=== PATIENT | female | born 1970 | race African-American/Black ===

== ENCOUNTER 2017-05-17 14:31 | Emergency (ER) | payer OTHER ==
[~2017-05-17] VITALS: Ht 162.6 cm; Wt 79.4 kg
[~2017-05-17 14:31] MED LIST: AUGMENTIN TAB875 MG PO; CARDIZEM CD120 MG ORAL; CIPROFLOXACIN500 M2 ORAL; DILTIAZEM HCL120 MG PO; HYDROCHLOROTHIA25 MG ORAL; HYDROCODON-ACE1 EA15 ORAL; IBUPROFEN600 MG ORAL; KEFLEX500 MG ORAL; METOPROLOL TART25 MG PO; NKM; PHENAZOPYRIDIN100 MG ORAL; TYLENOL EXTRA500 MG ORAL; ZOFRAN4 MG ORAL
[2017-05-17 14:51] VITALS: BP 176/108
--- NOTE | 2017-05-17 14:52 | Emergency Room Report ---
History of Present Illness General Chief Complaint: Neck Pain Source: Patient Present Illness HPI Patient is a 46-year-old female who presented after having increased right- sided neck pain. The patient reported having sharp pain which did not radiate. Pain was noticed after she woke up possibly 2 weeks ago. Patient stated that she had been having some episodic numbness to her extremities. The patient stated that she had no recent trauma or chiropractic use. She denies recent fever headache. She had not been vomiting. She denied recent sore throat Allergies: Coded Allergies: No Known Allergies (Unverified , 03/07/14) Patient History Past Medical History: see triage record Last Menstrual Period: 05/09/17 Now: No : 4 Para: 0 Reviewed Nursing Documentation: PMH: Agreed, PSxH: Agreed Nursing Documentation-PMH Past Medical History: No History, Except For Hx Hypertension: Yes Hx Pacemaker: No - Fibroid surgery via laser 2017 Review of Systems All Other Systems: negative except mentioned in HPI Physical Exam Vital Signs Date Time Temp Pulse Resp B/P (MAP) Pulse Ox O2 Delivery O2 Flow Rate FiO2 05/17/17 14:34 97.9 88 20 186/106 99 Room Air Sp02 EP Interpretation: reviewed, normal General Appearance: normal inspection, well appearing, no apparent distress, alert, GCS 15, non-toxic Head: atraumatic ENT: normal ENT inspection, hearing grossly normal, normal voice Neck: supple, no bony tend, limited range of motion, tender lateral, other - muscle spasm Respiratory: normal inspection, lungs clear, normal breath sounds, no respiratory distress, no retraction, no wheezing Cardiovascular #1: regular rate, rhythm, no edema Gastrointestinal: normal inspection, normal bowel sounds, non tender, soft, no guarding, no hernia Genitourinary: no CVA tenderness Musculoskeletal: normal inspection, back normal Neurologic: normal inspection, alert, oriented x3, responsive, costume designer III-XII nml as tested, speech normal Psychiatric: normal inspection, judgement/insight normal, mood/affect normal Skin: normal inspection, normal color, no rash Medical Decision Making Diagnostic Impression: Primary Impression: Acute torticollis ER Course Patient presented for neck pain. Differential diagnosis included vertebral artery dissection, myocardial infarction, cervical fracture arthritis, spondylolithises. Because of complexity of patient's case laboratory testing and imaging studies were ordered.X-ray imaging of the neck 4 views nterpreted by me showed normal bony alignment without evident soft tissue swelling or fracture.patient was given IV magnesium.Laboratory studies were unremarkable., The patient is advised to follow up with primary care doctor in 1-2 days. Patient is advised to return if any worsening condition or if any changes in status that are concerning. Labs Test 05/17/17 16:50 White Blood Count 5.3 K/UL (4.8-10.8) Red Blood Count 4.03 M/UL (4.20-5.40) Hemoglobin 13.1 G/DL (12.0-16.0) Hematocrit 38.9 % (37.0-47.0) Mean Corpuscular Volume 97 FL (80-99) Mean Corpuscular Hemoglobin 32.5 PG (27.0-31.0) Mean Corpuscular Hemoglobin Concent 33.6 G/DL (32.0-36.0) Red Cell Distribution Width 13.2 % (11.6-14.8) Platelet Count 243 K/UL (150-450) Mean Platelet Volume 7.2 FL (6.5-10.1) Neutrophils (%) (Auto) 48.8 % (45.0-75.0) Lymphocytes (%) (Auto) 42.5 % (20.0-45.0) Monocytes (%) (Auto) 5.9 % (1.0-10.0) Eosinophils (%) (Auto) 1.0 % (0.0-3.0) Basophils (%) (Auto) 1.8 % (0.0-2.0) Sodium Level 140 mEQ/L (135-145) Potassium Level 4.4 mEQ/L (3.4-4.9) Chloride Level 98 mEQ/L (98-107) Carbon Dioxide Level 27 mEQ/L (20-30) Anion Gap 15 (5-15) Blood Urea Nitrogen 10 mg/dL (7-23) Creatinine 0.9 mg/dL (0.5-0.9) Estimat Glomerular Filtration Rate > 60 mL/min (>60) Glucose Level 83 mg/dL (74-106) Calcium Level 9.0 mg/dL (8.6-10.2) Total Bilirubin 0.3 mg/dL (0.0-1.2) Aspartate Amino Transf (AST/SGOT) 23 U/L (5-40) Alanine Aminotransferase (ALT/SGPT) 12 U/L (3-33) Alkaline Phosphatase 77 U/L (35-104) Total Protein 7.4 g/dL (6.6-8.7) Albumin 4.3 g/dL (3.5-5.2) Globulin 3.1 g/dL Albumin/Globulin Ratio 1.3 (1.0-2.7) Other X-Ray Diagnostic Results Other X-Ray Diagnostic Results : # of Views/Limited Vs Complete: 4 View Indication: Pain EP Interpretation: Yes Interpretation: no dislocation, no soft tissue swelling, no fractures Impression: No acute disease Electronically Signed by: Electronically signed by Dr. Oscar Menjivar M.D. Last Vital Signs Date Time Temp Pulse Resp B/P (MAP) Pulse Ox O2 Delivery O2 Flow Rate FiO2 05/17/17 14:34 97.9 88 20 186/106 99 Room Air Status: improved Disposition: HOME, SELF-CARE Condition: Stable Scripts Diazepam* (VALIUM*) 5 Mg Tablet 5 MG ORAL TID Y for muscle spasm, #30 TAB 0 Refills Prov: Oscar Menjivar 05/17/17 Oscar Menjivar May 17, 2017 14:52
--- NOTE | 2017-05-17 16:02 | Diagnostic Imaging Report ---
Indication: PAIN Technique: 3 views of the lumbar spine Comparison: None Findings:There is straightening of the normal cervical lordosis. Otherwise normal bony alignment. No prevertebral soft tissue swelling There is degenerative disc narrowing at C5-6 and C6-7. No acute fractures. No dislocations. Impression:No acute process
[2017-05-17 16:26] VITALS: BP 164/96
[2017-05-17 17:01] LABS: BASOPHILS % (AUTO) 1.8 % (0.0-2.0); LYMPHOCYTES % (AUTO) 42.5 % (20.0-45.0); MEAN CORPUSCULAR HEMOGLOBIN 32.5 PG (27.0-31.0); MEAN CORPUSCULAR HGB CONC 33.6 G/DL (32.0-36.0); MEAN CORPUSCULAR VOLUME 97 FL (80-99); MEAN PLATELET VOLUME 7.2 FL (6.5-10.1); MONOCYTES % (AUTO) 5.9 % (1.0-10.0); NEUTROPHILS % (AUTO) 48.8 % (45.0-75.0); PLATELET COUNT 243 K/UL (150-450); RED BLOOD COUNT 4.03 M/UL (4.20-5.40); RED CELL DISTRIBUTION WIDTH 13.2 % (11.6-14.8); WHITE BLOOD COUNT 5.3 K/UL (4.8-10.8)
[2017-05-17 17:25] LABS: ALANINE AMINOTRANSFERASE 12 U/L (3-33); ALBUMIN/GLOBULIN RATIO 1.3 (1.0-2.7); ANION GAP 15 (5-15); ASPARTATE AMINO TRANSFERASE 23 U/L (5-40); CARBON DIOXIDE 27 mEQ/L (20-30); CHLORIDE 98 mEQ/L (98-107); CREATININE 0.9 mg/dL (0.5-0.9); GLOMERULAR FILTRATION RATE > 60 mL/min (>60); HEMOLYSIS 43; POTASSIUM 4.4 mEQ/L (3.4-4.9); SODIUM 140 mEQ/L (135-145); TOTAL PROTEIN 7.4 g/dL (6.6-8.7)
[2017-05-17] MEDS ORDERED: VALIUM5 MG ORAL (17:37)
[2017-05-17 17:45] VITALS: BP 164/96
[2017-05-17 19:16] VITALS: BP 148/103
== END 2017-05-17 19:16 | disposition home or self-care (01) ==
LOC: EMR 14:50
DX: M43.6 Torticollis (principal); M54.2 Cervicalgia; I10 Essential (primary) hypertension
CPT/HCPCS: 36415; 72040; 80053; 85025; 96361; 96365; 99284

== ENCOUNTER 2017-11-04 17:15 | Emergency (ER) | payer OTHER ==
[~2017-11-04] VITALS: Ht 162.6 cm; Wt 72.6 kg
[~2017-11-04 17:15] MED LIST changes: +VALIUM5 MG ORAL
[2017-11-04 17:54] VITALS: BP 162/109
--- NOTE | 2017-11-04 17:58 | Emergency Room Report ---
History of Present Illness General Chief Complaint: Earache Source: Patient Present Illness HPI 47 YO Female presents to the ED c/o decreased hearing in the left ear progressive x 10 days. recent URI. Denies fevers, chills, or ear pain. pt. reports hx of impacted cerumen. Pt. reports having some hearing in the left ear however describes muffled. Denies CP, Palpitations, LOC, AMS, dizziness, Changes in Vision, Sensation, paresthesias, or a sudden severe headache. Allergies: Coded Allergies: No Known Allergies (Unverified , 03/07/14) Patient History Past Medical History: see triage record Past Surgical History: none Pertinent Family History: none Last Menstrual Period: 4 weeks ago Now: No Reviewed Nursing Documentation: PMH: Agreed, PSxH: Agreed Nursing Documentation-PMH Past Medical History: No History, Except For Hx Hypertension: Yes Hx Pacemaker: No - Fibroid surgery via laser 2017 Review of Systems All Other Systems: negative except mentioned in HPI Physical Exam Vital Signs Date Time Temp Pulse Resp B/P (MAP) Pulse Ox O2 Delivery O2 Flow Rate FiO2 11/04/17 17:23 98.8 97 16 162/113 99 Room Air 98.8 Sp02 EP Interpretation: reviewed, normal General Appearance: no apparent distress, alert, GCS 15, non-toxic Head: normocephalic, atraumatic Eyes: bilateral eye normal inspection, bilateral eye PERRL ENT: hearing grossly normal, normal voice, uvula midline, moist mucus membranes , nasal congestion, other - Impacted Cerumen of the left ear canal Neck: full range of motion Respiratory: lungs clear, normal breath sounds, speaking full sentences Cardiovascular #1: regular rate, rhythm Musculoskeletal: gait/station normal, normal range of motion Neurologic: alert, oriented x3, responsive, motor strength/tone normal, sensory intact, normal gait, speech normal, grossly normal Psychiatric: judgement/insight normal Skin: normal color, no rash, warm/dry, well hydrated Lymphatic: no adenopathy Medical Decision Making PA Attestation Dr. sanchez is my supervising Physician whom patient management has been discussed with. Diagnostic Impression: Primary Impression: Impacted cerumen of left ear ER Course 47 YO Female presents to the ED c/o decreased hearing in the left ear progressive x 10 days. recent URI. Denies fevers, chills, or ear pain. pt. reports hx of impacted cerumen. Pt. reports having some hearing in the left ear however describes muffled. Denies CP, Palpitations, LOC, AMS, dizziness, Changes in Vision, Sensation, paresthesias, or a sudden severe headache. Ddx considered but are not limited to OM, OE, mastoiditis, TM perforation, FB Vital signs: are WNL, pt. is afebrile H&PE are most consistent with impacted cerumen of the left ear canal. ORDERS: none required at this time, the diagnosis is clinical -OSOTCOPY: Impacted cerumen in the left ear canal. ED INTERVENTIONS: -Ear Irrigation by gameroom technician. Upon reevaluation the canal is clear of infection and no evidence of infection. She tolerated the procedure well. She reports significant improvement in her ability to hear out of the left ear. DISCHARGE: At this time pt. is stable for d/c to home. With rx for Docusate. Will provide printed patient care instructions, and any necessary prescriptions. Care plan and follow up instructions have been discussed with the patient prior to discharge. Last Vital Signs Date Time Temp Pulse Resp B/P (MAP) Pulse Ox O2 Delivery O2 Flow Rate FiO2 11/04/17 17:23 98.8 97 16 162/113 99 Room Air 98.8 Disposition: HOME, SELF-CARE Condition: Stable Scripts Carbamide Peroxide (DEBROX) 15 Ml Drops 5 DROP LEFT EAR TWICE A DAY for 4 Days, #15 ML 0 Refills Prov: Corazon Laughlin 11/04/17 Patient Instructions: Cerumen Impaction Additional Instructions: Take medications as directed. Follow up with a Primary Care Provider in 3-5 days, for ENT/audiology Referral if Symptoms persist. --Please review list of primary care clinics, if you do not already have a primary care provider Return sooner to ED if new symptoms occur, or current symptoms become worse. - Please note that this Emergency Department Report was dictated using [employer] director technology software, occasionally this can lead to erroneous entry secondary to interpretation by the dictation equipment. Corazon Laughlin Nov 04, 2017 17:58
[2017-11-04] MEDS ORDERED: DEBROX15 M1 LEFT EAR (18:00)
[2017-11-04 18:17] VITALS: BP 162/109
== END 2017-11-04 18:17 | disposition home or self-care (01) ==
LOC: EMR 17:55
DX: H61.22 Impacted cerumen, left ear (principal); I10 Essential (primary) hypertension
CPT/HCPCS: 69210; 99283

== ENCOUNTER 2018-04-28 14:21 | Emergency (ER) | payer OTHER ==
[~2018-04-28] VITALS: Ht 162.6 cm; Wt 72.6 kg
[~2018-04-28 14:21] MED LIST changes: +DEBROX15 M1 LEFT EAR
[2018-04-28 14:31] VITALS: BP 150/100
--- NOTE | 2018-04-28 14:40 | Emergency Room Report ---
History of Present Illness General Chief Complaint: Eye Problems Source: Patient Present Illness HPI Patient is a 47-year-old female with no significant past medical history here complaining of 2 days of right eyelid pain after stye. Patient denies discharge , photophobia, vision changes, fever/chills or rhinorrhea. She mentions that she has recurrent styes in the same eye due to eye makeup denies foreign body or trauma to the eye denies all other review of systems Allergies: Coded Allergies: No Known Allergies (Unverified , 03/07/14) Patient History Past Medical History: see triage record Past Surgical History: none Last Menstrual Period: 7 days ago Now: No Immunizations: UTD Reviewed Nursing Documentation: PMH: Agreed; PSxH: Agreed Nursing Documentation-PMH Past Medical History: No History, Except For Hx Hypertension: Yes Hx Pacemaker: No - Fibroid surgery via laser 2017 Review of Systems All Other Systems: negative except mentioned in HPI Physical Exam Vital Signs Date Time Temp Pulse Resp B/P (MAP) Pulse Ox O2 Delivery O2 Flow Rate FiO2 04/28/18 14:23 98.3 96 16 150/100 100 Room Air 98.2 Sp02 EP Interpretation: reviewed, normal General Appearance: normal inspection, well appearing, no apparent distress Head: normocephalic Eyes: right eye other - hordeolum in the right upper eyelid; bilateral eye PERRL ENT: normal ENT inspection, hearing grossly normal Neck: normal inspection, supple Respiratory: normal inspection, lungs clear, no rhonchi, no wheezing Cardiovascular #1: normal inspection, no murmur, no rub Gastrointestinal: normal inspection, soft Rectal: deferred Genitourinary: deferred Musculoskeletal: normal inspection Neurologic: normal inspection, alert, oriented x3 Psychiatric: normal inspection, judgement/insight normal, memory normal Skin: other - Hordeolum right upper eyelid Lymphatic: normal inspection, no adenopathy Medical Decision Making PA Attestation All diagnosis and treatment plans were reviewed and discussed with my supervising physician Dr. Gutierrez Diagnostic Impression: Primary Impression: Hordeolum Additional Impression: Bacterial conjunctivitis ER Course Patient is a 47-year-old female with no significant past medical history here complaining of 2 days of right eyelid pain after stye. Patient denies discharge , photophobia, vision changes, fever/chills or rhinorrhea. She mentions that she has recurrent styes in the same eye due to eye makeup denies foreign body or trauma to the eye denies all other review of systems Ddx considered but are not limited to portion of right upper eyelid, chalazian, conjunctivitis Vital signs: are WNL, pt. is afebrile H&PE are most consistent with origin right upper eyelid ORDERS:erythromycin ointment and a Floxin ophthalmic ED INTERVENTIONS: None required at this time. DISCHARGE: At this time pt. is stable for d/c to home. Will provide printed patient care instructions, and any necessary prescriptions. Care plan and follow up instructions have been discussed with the patient prior to discharge.avoid cross contamination, hand hygiene advice, change pillowcases, apply warm compresses, avoid makeup Last Vital Signs Date Time Temp Pulse Resp B/P (MAP) Pulse Ox O2 Delivery O2 Flow Rate FiO2 04/28/18 14:31 98.2 16 150/100 100 Room Air 98.2 04/28/18 14:23 96 Disposition: HOME, SELF-CARE Condition: Stable Scripts Ofloxacin (Ofloxacin) 5 Ml Drops 2 DROP OP BID for 7 Days, #50 ML Prov: Jonah Garcia P.A. 04/28/18 Erythromycin Base (ERYTHROMYCIN*) 3.5 Gm Oint...g. 1 APPLIC RIGHT EYE BID for 7 Days, #3.5 GM 0 Refills Prov: Jonah Garcia P.A. 04/28/18 Patient Instructions: Bacterial Conjunctivitis, Stye Additional Instructions: avoid cross contamination, put warm compresses on the affected eye, he is a medication as directed, change pillowcases, hand hygiene highly recommended, avoid eye makeup Jonah Garcia P.A. Apr 28, 2018 14:40
[2018-04-28] MEDS ORDERED: ERYTHROMYCIN3.5 GM RIGHT EYE (14:45)
[2018-04-28] MEDS ORDERED: OFLOXACIN10 ML OP (14:45)
[2018-04-28 14:50] VITALS: BP 150/100
== END 2018-04-28 14:50 | disposition home or self-care (01) ==
LOC: EMR 14:45
DX: H00.011 Hordeolum externum right upper eyelid (principal); H10.9 Unspecified conjunctivitis; I10 Essential (primary) hypertension
CPT/HCPCS: 99282